=== PATIENT | male | born 1980 | race Caucasian/White ===

== ENCOUNTER → 2021-02-01 16:46 | Outpatient (CLI) | payer BC, SELFPAY ==
--- NOTE | 2021-02-01 17:01 | RAD_ITS ---
EXAM: XR ABDOMEN, 1 VIEW : 1980 CLINICAL INDICATION: UNSPECIFIED ABD PAIN,MICRO HEMATURIA TECHNIQUE: Frontal supine view of the abdomen/pelvis. This report was created using [employer] report generation technology. COMPARISON: None. FINDINGS: LOWER THORAX: No acute pathology. GASTROINTESTINAL TRACT: Unremarkable. Non-obstructive. No bowel or stomach distention. ORGANS: There are calcifications seen within the abdomen bilaterally which may are within phleboliths or calyceal stones. In the right elbow calcification measures 2 mm the left elbow calcification measures 1 cm. No organomegaly. BONES/JOINTS: There is curvature of the lumbar spine. SOFT TISSUES: No acute pathology. RAD/Abdomen Single View IMPRESSION: Bilateral abdominal calcifications which may represent phleboliths or calyceal stones. If indicated further evaluation with CT scan may be beneficial. at [id number] Reported and signed by: Maldonado Rodriguez MD Electronically Signed: Maldonado Rodriguez MD at 4:05 EDT Tel , Service support ,
== END ==
PROVIDERS: PCP Family Medicine; Referring Provider Nurse Practitioner Adult Health; Visit Provider Nurse Practitioner Adult Health
DX: R10.9 Unspecified abdominal pain (principal); R31.29 Other microscopic hematuria
CPT/HCPCS: 74018

== ENCOUNTER → 2021-02-03 08:30 | Outpatient (CLI) | payer BC, SELFPAY | PROVIDERS: PCP Family Medicine; Referring Provider Urology; Visit Provider Urology | DX: Z03.818 Encounter for observation for suspected exposure to other biological agents ruled out (principal) | CPT/HCPCS: 87635; C9803; U0005; U0003 ==